=== PATIENT | male | born 1975 | race African-American/Black ===

== ENCOUNTER 2019-11-14 11:15 | Emergency (ER) | payer BC, OTHER ==
--- NOTE | 2019-11-14 11:20 | PDOC ---
Rapid Medical Evaluation Time Seen by Provider: 11/14/19 11:17 Medical Evaluation: Allergies Allergy/AdvReac Type Severity Reaction Status Date / Time Penicillins Allergy Verified 07/19/12 23:36 11/14/19 11:17 CC: fever and arthalgia X 1 MONTH AGO, covid -. denies penile discharge, rash, insect bite, now with left wrist pain and swelling, denies gout, Exam: noted edema and tenderness generally over left wrist, vss Plan: xray, lyme, esr, sed rate Discharge Disposition - Diagnosis Wrist pain - Referrals - Patient Instructions - Post Discharge Activity
[2019-11-14 11:22] VITALS: BP 165/97; PULSE 94; TEMP 98.8; BMI 38.2
[2019-11-14] MEDS ORDERED: COLCHICINE 0.6 MG TAB PO ONE (11:52)
[2019-11-14] MEDS ORDERED: COLCHICINE 0.6 MG CAP ONE (12:06)
--- NOTE | 2019-11-14 12:07 | PDOC ---
History of Present Illness - General Chief Complaint: Pain, Acute Stated Complaint: FT HAND SWOLLEN Time Seen by Provider: 11/14/19 11:17 History Source: Patient Exam Limitations: Clinical Condition - History of Present Illness Initial Comments: 11/14/19 12:14 Patient with past medical history of hypertension on amlodipine presented with complaint of 3-day history of swelling to left hand of unknown etiology which started suddenly and has been progressing getting worse with worsening pain to left wrist. Patient report has been having intermittent swelling to different joints which started in left toe few weeks ago which resolved with ibuprofen and cold compresses. Patient reported few days later started feeling joint again and right knee which also resolved with a few days with NSAIDs and now have pain and swelling left hand and wrist. Patient denies any trauma or injury. Denies any history of autoimmune or family history of immune disease. Denies any recent travel or being around any bushes or forest or any known insect or tick bite. Denies numbness or tingling sensation. Denies fever, chills, weakness. Denies any other symptoms. Patient report taking 800 mg of Profen prior to arrival Is this a multiple visit Asthma Patient?: No Timing/Duration: intermittent, other (3 days) Severity: moderate Modifying Factors: improves with: cold therapy, medication (motrin) Associated Symptoms: denies: fever/chills, weakness Past History - Medical History Allergies/Adverse Reactions: Allergies Allergy/AdvReac Type Severity Reaction Status Date / Time Penicillins Allergy Verified 11/14/19 11:29 Home Medications: Ambulatory Orders Amitriptyline HCl [Elavil] 10 mg PO HS 07/19/12 Clarithromycin [Clarithromycin ER] 1,000 mg PO DAILY 07/19/12 Hydrochlorothiazide 25 mg PO DAILY 07/19/12 Omeprazole [Prilosec (RX)] 40 mg PO DAILY 07/19/12 predniSONE [Deltasone -] 20 mg PO BID #10 tablet 07/20/12 Colchicine [Colcrys] 0.6 mg PO DAILY #10 tablet 11/14/19 Meloxicam 15 mg PO DAILY #10 tablet 11/14/19 COPD: No HTN: Yes - Immunization History Immunization Up to Date: Yes - Psycho-Social/Smoking History Smoking Status: No Smoking History: Never smoked Have you smoked in the past 12 months: No Number of Cigarettes Smoked Daily: 0 Information on smoking cessation initiated: No - Substance Abuse Hx (Audit-C & DAST Scrn) How often the patient has a drink containing alcohol: 2-4 times / month Number of drinks the patient has on a typical day: 1 or 2 How often the patient has six or more drinks on one occasion: Less than monthly Score: In Men: 4 or > Positive; In Women: 3 or > Positive: 3 Screen Result (Pos requires Nsg. Audit-10AR): Negative In the last yr the pt used illegal drug/Rx for NonMed reason: No Score: Yes response is considered Positive: 0 Screen Result (Positive result requires Nsg. DAST-10): Negative Review of Systems - Review of Systems Able to Perform ROS?: Yes Is the patient limited Lithuanian proficient: No Constitutional: No: Chills, Fever, Malaise HEENTM: No: Symptoms Reported, See HPI, Eye Pain, Blurred Vision, Tearing, Recent change in vision, Double Vision, Cataracts, Ear Pain, Ocular Prothesis, Ear Discharge, Nose Pain, Nose Congestion, Tinnitus, Nose Bleeding, Hearing Loss, Throat Pain, Throat Swelling, Mouth Pain, Dental Problems, Difficulty Swallowing, Mouth Swelling, Other Respiratory: No: Symptoms reported, See HPI, Cough, Orthopnea, Shortness of Breath, SOB with Exertion, SOB at Rest, Stridor, Wheezing, Productive cough, Hemoptysis, Other Cardiac (ROS): No: Symptoms Reported, See HPI, Chest Pain, Edema, Irregular Heart Rate, Lightheadedness, Palpitations, Syncope, Chest Tightness, Other ABD/GI: No: Symptoms Reported Musculoskeletal: Yes: Symptoms Reported, See HPI, Joint Pain (left wrist), Joint Swelling (left wrist and hand swelling), Muscle Pain (left hand) Integumentary: No: Symptoms Reported, Change in Color Neurological: No: Paresthesia, Tingling, Weakness All Other Systems: Reviewed and Negative *Physical Exam - Vital Signs Last Vital Signs Temp Pulse Resp BP Pulse Ox 98.8 F 94 H 18 165/97 97 11/14/19 11:18 11/14/19 11:18 11/14/19 11:18 11/14/19 11:18 11/14/19 11:18 - Physical Exam 11/14/19 12:21 GENERAL: Well developed, well nourished. Awake and alert in mild acute distress. CARDIOVASCULAR: Regular rate and rhythm. No murmurs, rubs, or gallops. PULMONARY: No evidence of respiratory distress. Lungs clear to auscultation bilaterally. No wheezing, rales or rhonchi. MUSCULOSKELETAL : Moderate tenderness to left wrist with increased tenderness to ulnar. Moderate swelling to left wrist and whole hand with no visible deformity or evidence of injury. SKIN: Warm and dry. Normal capillary refill. Moderate swelling to left wrist and hand. No skin erythema or increased warmth NEUROLOGICAL: Alert, awake, appropriate. No motor deficits in the lower extremities. Gait is normal without ataxia. PSYCHIATRIC: Cooperative. Good eye contact. Appropriate mood and affect. General Appearance: Yes: Nourished, Appropriately Dressed, Apparent Distress, Moderate Distress Medical Decision Making - Medical Decision Making 11/14/19 12:17 Patient with past medical history of hypertension on amlodipine presented with complaint of 3-day history of swelling to left hand of unknown etiology which started suddenly and has been progressing getting worse with worsening pain to left wrist. Patient report has been having intermittent swelling to different joints which started in left toe few weeks ago which resolved with ibuprofen and cold compresses. Patient reported few days later started feeling joint again and right knee which also resolved with a few days with NSAIDs and now have pain and swelling left hand and wrist. Patient denies any trauma or injury. Denies any history of autoimmune or family history of immune disease. Denies any recent travel or being around any bushes or forest or any known insect or tick bite. Denies numbness or tingling sensation. Denies fever, chills, weakness. Denies any other symptoms. Patient report taking 800 mg of Profen prior to arrival Exam significant for moderate swelling to left hand and wrist with moderate tenderness to ulnar and radial aspect of left wrist which is worse when radial deviation of left wrist. No skin erythema. No open wounds or evidence of bite to skin. Given sporadic joint pains and swelling, will do ESR, Lyme titers and uric acid to rule out gout or Lyme. Patient already taking ibuprofen 800 mg which seems to be help with pain, will give Colcrys 1.2 mg p.o. Reassess after lab results 11/14/19 14:13 Uric acid normal. ESR elevated to 70.8. Lyme disease labs still pending. Patient symptoms likely inflammatory effect and less likely gout given normal uric acid. Patient stable for discharge on colchicine daily for 7 days and advised to continue home meloxicam medication as needed with rheumatology follow-up Discharge - Discharge Information Problems reviewed: Yes Clinical Impression/Diagnosis: Swelling of joint, wrist, left Wrist pain Qualifiers: Laterality: left Qualified Code(s): M25.532 - Pain in left wrist Condition: Stable Disposition: HOME - Admission No - Additional Discharge Information Prescriptions: Colchicine [Colcrys] 0.6 mg PO DAILY #10 tablet Meloxicam 15 mg PO DAILY #10 tablet - Follow up/Referral Referrals: Lewis Major v [Primary Care Provider] - Melvin Napier MD [Staff Physician] - - Patient Discharge Instructions Patient Printed Discharge Instructions: DI for Arthralgia, DI for Joint Pain Additional Instructions: Your uric acid level was normal and makes it less likely to be gout attack. Lyme labs is pending and will be available in a few days which you will be contacted with results. Take prescribed medication as prescribed for pains. Soak left hand in Epson salt water or warm compress to help with swelling. Follow-up with referred rheumatology for further work-up of joint pains and swelling - Post Discharge Activity
== END 2019-11-14 14:04 | disposition home or self-care (01) ==
LOC: JERFT 11:15
DX: M25.532 Pain in left wrist (principal)
CPT/HCPCS: 36415; 73110-TC-LT-FY; 84550; 85651; 86618; 99284-25